=== PATIENT | female | born 1965 | race African-American/Black ===

== ENCOUNTER 2016-09-08 17:18 | Observation (INO) | payer BC ==
[2016-09-08] VITALS (7 sets, daily range): BP systolic 122–151; BP diastolic 81–115; PULSE 71–80; RESP 16–20; TEMP 97.8–98.5; O2SAT 98–100
[~2016-09-08] VITALS: Ht 167.6 cm; Wt 90.5 kg
[~2016-09-08 17:18] MED LIST: 1-ME1LIQ PO; AMLO10TA2 PO; ASPI-110 PO; ASPI81TA82 PO; B-12; CALC-179 OR; HYDR12.56 PO; HYDR12.57 PO; METO50TA PO; MVI; RANI150T PO; VIT E
[2016-09-08] MEDS ORDERED: SODIUM CHLORIDE 0.9% FLUSH 5 ML FLUSH IVF PRN ×2 (17:45→21:00)
[2016-09-08 18:17] LABS: AUTOMATED NEUTROPHIL # 7.5 TH/MM3 (1.8-7.7); BASOPHIL # 0.1 TH/MM3 (0-0.2); BASOPHIL % 0.6 % (0.0-2.0); EOSINOPHIL # 0.2 TH/MM3 (0-0.4); EOSINOPHIL % 1.7 % (0.0-4.0); HEMATOCRIT 37.7 % (35.0-46.0); HEMO FLAGS DIFF FINAL; LYMPH % 17.6 % (9.0-44.0); LYMPHOCYTE # 1.8 TH/MM3 (1.0-4.8); MEAN CELL VOLUME 88.6 FL (80.0-100.0); MEAN CORPUSCULAR HEMOGLOBIN 30.5 PG (27.0-34.0); MEAN CORPUSCULAR HGB CONC 34.5 % (32.0-36.0); MONO % 5.8 % (0.0-8.0); NEUT % 74.3 % (16.0-70.0); PLATELET COUNT 230 TH/MM3 (150-450); RED BLOOD COUNT 4.26 MIL/MM3 (4.00-5.30); RED CELL DISTRIBUTION WIDTH 14.5 % (11.6-17.2); WHITE BLOOD COUNT 10.2 TH/MM3 (4.0-11.0)
--- NOTE | 2016-09-08 18:17 | RADRPT ---
EXAM DATE/TIME: 09/08/2016 17:58 [facility] COMPARISON: No previous studies available for comparison. INDICATIONS : Chest and left shoulder pain. MEDICAL HISTORY : Hypertension. SURGICAL HISTORY : None. ENCOUNTER: Initial ACUITY: 2 weeks PAIN SCORE: 10/10 LOCATION: chest FINDINGS: A single view of the chest demonstrates the lungs to be symmetrically aerated without evidence of mas s, infiltrate or effusion. The cardiomediastinal contours are unremarkable. Osseous structures are intact. CONCLUSION: No acute disease. Kirk Lauren MD on September 08, 2016 at 18:14 Board Certified Radiologist. This report was verified electronically.
[2016-09-08 18:29] LABS: APTT (PATIENT) 36.4 SEC (24.3-30.1); PROTHROMBIN TIME - PATIENT 10.9 SEC (9.8-11.6)
--- NOTE | 2016-09-08 18:30 | PD ---
HPI Chief Complaint: Pain: Acute or Chronic Time Seen by Provider: 18:23 Travel History International Travel<30 days: No Contact w/Intl Traveler<30days: No Traveled to known affect area: No History of Present Illness HPI Patient is a 51-year-old female presenting with left-sided chest pain that radiates into her left shoulder to about the elbow for 2 weeks. Worsening over the last 2 days. She states the pain is achy in nature. It is often mild and frequent only present. It does seem to be worse with movements and uses of the left arm. She denies any exertional component and it is not relieved by rest. She denies any associated shortness of breath, nausea, vomiting, diaphoresis, dizziness, palpitations, cough or fever. She denies pedal edema or pain in her legs. She denies orthopnea and OSBORN. She denies worsening pain with lying flat and relieved by lying forward. She has taken Tylenol for the pain which has not helped. She denies any trauma or injury to the arm but has had intermittent paresthesias in the upper left extremity 2-3 years, none of them present the last 2 weeks during this time. She is a history of hypertension is well-controlled. She denies history of diabetes, hyperlipidemia and CAD. She is a never smoker. She denies alcohol and illicit drug use. Of note in February 2012 Dr. Nicole performed a nuclear stress test was was normal. [facility] Past Medical History Arthritis: No Asthma: No Autoimmune Disease: No Blood Disorders: No Anxiety: No Depression: No Heart Rhythm Problems: No Cancer: No High Cholesterol: No Chemotherapy: No Chest Pain: Yes Congestive Heart Failure: No COPD: No Cerebrovascular Accident: No Diabetes: No Endocrine: No GERD: No Glaucoma: No Genitourinary: No Headaches: No Hepatitis: No Hiatal Hernia: No Hypertension: Yes Kidney Stones: No Musculoskeletal: No Neurologic: No Psychiatric: No Respiratory: No Myocardial Infarction: No Radiation Therapy: No Renal Failure: No Seizures: No Sickle Cell Disease: No Sleep Apnea: No Thyroid Disease: No Ulcer: No ?: Not Past Surgical History Abdominal Surgery: No AICD: No Cardiac Surgery: No Ear Surgery: No Endocrine Surgery: No Eye Surgery: No Genitourinary Surgery: No Gynecologic Surgery: Yes Oral Surgery: No Pacemaker: No Thoracic Surgery: No Social History Alcohol Use: No Tobacco Use: No Substance Use: No Allergies-Medications (Allergen,Severity, Reaction): Coded Allergies: Latex (Verified Allergy, Severe, itching, burning, 09/08/16) Vasotec (Verified Allergy, Severe, angioedema, 09/08/16) SOB, trouble breathing, facial swelling, slurred speech Reported Meds & Prescriptions Reported Meds & Active Scripts Active Reported Metoprolol Tartrate 50 Mg Tab 50 Mg PO BID Hydrochlorothiazide 12.5 Mg Cap 12.5 Mg PO BID Ranitidine (Ranitidine HCl) 150 Mg Tab 150 Mg PO BID Aspirin 81 (Aspirin) 81 Mg Tabdr 81 Mg PO DAILY [Vit E] [Mvi] Calciu3 1 OR [B-12] Review of Systems Except as stated in HPI: all other systems reviewed are Neg Physical Exam Narrative GENERAL: Well-developed and well-nourished adult female in no acute distress. SKIN: Warm and dry. Good turgor without tenting. HEAD: Normocephalic and atraumatic. EYES: PERRL bilaterally, 5mm. EOMI bilaterally. No injection or icterus present. No proptosis. Lids without edema or erythema. ENT: Buccal mucosa pink and moist. Oropharynx free of erythema, tonsillar hypertrophy, masses, swelling, asymmetry and exudates. Uvula midline and airway patent. NECK: Supple, no midline tenderness, crepitus or step-offs or meningeal signs. Trachea midline, no JVD. No cervical or facial lymphadenopathy. CARDIOVASCULAR: Regular rate and rhythm without murmurs, rubs, clicks or gallops. Radial and posterior tibial pulses 2+ bilaterally. No pedal edema. Negative bilateral Homans sign. RESPIRATORY: Clear to auscultation bilaterally with symmetrical rise and fall, no distress or use of accessory muscles. GASTROINTESTINAL: Non-tender, non-distended. Normal bowel sounds all 4 quadrants. No masses or organomegaly present. MUSCULOSKELETAL: Palpation of the anterior chest wall and sternum reveals no tenderness, crepitus or step offs. Full range of motion the left shoulder without any squaring off or tenderness to palpation. No edema or discoloration. No gait disturbances. Patient freely moving all four extremities spontaneously. Extremities without clubbing, cyanosis, or edema. No obvious deformities. NEUROLOGIC: CN II-XII grossly intact. Awake and alert. Strength 5/5 bilateral shoulder flexion, shoulder extension, elbow flexion, elbow extension, wrist flexion and wrist extension. Sensation intact and strength 5/5 over radial, median, and ulnar nerve distributions bilaterally. Bilateral biceps, triceps and brachial radialis DTRs 2+. Negative bilateral Garrett sign. Normal speech. PSYCHIATRIC: Appropriate mood and affect; insight and judgment normal. Data Data Last Documented VS Vital Signs Date Time Temp Pulse Resp B/P Pulse Ox O2 Delivery O2 Flow Rate FiO2 09/08/16 20:30 78 16 130/81 99 Room Air 09/08/16 17:42 98.5 Orders Electrocardiogram (09/08/16 17:40) Basic Metabolic Panel (Bmp) (09/08/16 17:40) Ckmb (Isoenzyme) Profile (09/08/16 17:40) Complete Blood Count With Diff (09/08/16 17:40) Magnesium (Mg) (09/08/16 17:40) Prothrombin Time / Inr (Pt) (09/08/16 17:40) Act Partial Throm Time (Ptt) (09/08/16 17:40) Troponin I (09/08/16 17:40) Chest, Single Ap (09/08/16 17:40) Ecg Monitoring (09/08/16 17:40) Bilateral Bp Monitoring (09/08/16 17:40) Iv Access Insert/Monitor (09/08/16 17:40) Oximetry (09/08/16 17:40) Sodium Chloride 0.9% Flush (Ns Flush) (09/08/16 17:45) CKMB (09/08/16 18:03) CKMB% (09/08/16 18:03) Potassium Chloride (Kcl) (09/08/16 19:15) Admit Order (Ed Use Only) (09/08/16 20:49) Labs Laboratory Tests Test 09/08/16 18:03 White Blood Count 10.2 TH/MM3 Red Blood Count 4.26 MIL/MM3 Hemoglobin 13.0 GM/DL Hematocrit 37.7 % Mean Corpuscular Volume 88.6 FL Mean Corpuscular Hemoglobin 30.5 PG Mean Corpuscular Hemoglobin 34.5 % Concent Red Cell Distribution Width 14.5 % Platelet Count 230 TH/MM3 Mean Platelet Volume 8.8 FL Neutrophils (%) (Auto) 74.3 % Lymphocytes (%) (Auto) 17.6 % Monocytes (%) (Auto) 5.8 % Eosinophils (%) (Auto) 1.7 % Basophils (%) (Auto) 0.6 % Neutrophils # (Auto) 7.5 TH/MM3 Lymphocytes # (Auto) 1.8 TH/MM3 Monocytes # (Auto) 0.6 TH/MM3 Eosinophils # (Auto) 0.2 TH/MM3 Basophils # (Auto) 0.1 TH/MM3 CBC Comment DIFF FINAL Differential Comment Prothrombin Time 10.9 SEC Prothromb Time International 1.0 RATIO Ratio Activated Partial 36.4 SEC Thromboplast Time Sodium Level 138 MEQ/L Potassium Level 3.1 MEQ/L Chloride Level 100 MEQ/L Carbon Dioxide Level 28.6 MEQ/L Anion Gap 9 MEQ/L Blood Urea Nitrogen 13 MG/DL Creatinine 0.72 MG/DL Estimat Glomerular Filtration 104 ML/MIN Rate Random Glucose 88 MG/DL Calcium Level 9.3 MG/DL Magnesium Level 2.0 MG/DL Total Creatine Kinase 158 U/L Creatine Kinase MB 0.6 NG/ML Troponin I LESS THAN 0.02 NG/ML MDM Medical Decision Making Medical Screen Exam Complete: Yes Emergency Medical Condition: Yes Interpretation(s) Laboratory Tests Test 09/08/16 18:03 White Blood Count 10.2 TH/MM3 (4.0-11.0) Red Blood Count 4.26 MIL/MM3 (4.00-5.30) Hemoglobin 13.0 GM/DL (11.6-15.3) Hematocrit 37.7 % (35.0-46.0) Mean Corpuscular Volume 88.6 FL (80.0-100.0) Mean Corpuscular Hemoglobin 30.5 PG (27.0-34.0) Mean Corpuscular Hemoglobin 34.5 % Concent (32.0-36.0) Red Cell Distribution Width 14.5 % (11.6-17.2) Platelet Count 230 TH/MM3 (150-450) Mean Platelet Volume 8.8 FL (7.0-11.0) Neutrophils (%) (Auto) 74.3 % (16.0-70.0) Lymphocytes (%) (Auto) 17.6 % (9.0-44.0) Monocytes (%) (Auto) 5.8 % (0.0-8.0) Eosinophils (%) (Auto) 1.7 % (0.0-4.0) Basophils (%) (Auto) 0.6 % (0.0-2.0) Neutrophils # (Auto) 7.5 TH/MM3 (1.8-7.7) Lymphocytes # (Auto) 1.8 TH/MM3 (1.0-4.8) Monocytes # (Auto) 0.6 TH/MM3 (0-0.9) Eosinophils # (Auto) 0.2 TH/MM3 (0-0.4) Basophils # (Auto) 0.1 TH/MM3 (0-0.2) CBC Comment DIFF FINAL Differential Comment Prothrombin Time 10.9 SEC (9.8-11.6) Prothromb Time International 1.0 RATIO Ratio Activated Partial 36.4 SEC Thromboplast Time (24.3-30.1) Sodium Level 138 MEQ/L (136-145) Potassium Level 3.1 MEQ/L (3.5-5.1) Chloride Level 100 MEQ/L (98-107) Carbon Dioxide Level 28.6 MEQ/L (21.0-32.0) Anion Gap 9 MEQ/L (5-15) Blood Urea Nitrogen 13 MG/DL (7-18) Creatinine 0.72 MG/DL (0.50-1.00) Estimat Glomerular Filtration 104 ML/MIN Rate (>89) Random Glucose 88 MG/DL (74-106) Calcium Level 9.3 MG/DL (8.5-10.1) Magnesium Level 2.0 MG/DL (1.5-2.5) Total Creatine Kinase 158 U/L (26-192) Creatine Kinase MB 0.6 NG/ML (0.5-3.6) Troponin I LESS THAN 0.02 NG/ML (0.02-0.05) Last Impressions Chest X-Ray 09/08/16 6480 Signed Impressions: Service Date/Time: Thursday, September 08, 2016 17:58 - CONCLUSION: No acute disease. Kirk Lauren MD Differential Diagnosis ACS versus costochondritis versus pericarditis versus pneumonia versus shoulder pain versus tendinitis Narrative Course Patient is a 51-year-old female who has had intermittent left-sided chest pain radiating the left shoulder for 2 weeks worsening over the last 2 days. Does seem to be worse with use of the left upper extremity but not exertional and not relieved by rest. She is vague about the pain and has difficulty describing what seems to be aching and rather constant and she denies any associated symptoms. This is not reproducible however. She does have a history of hypertension which is well-controlled and takes daily aspirin. She is a nonsmoker and denies history of diabetes and hyperlipidemia. 2011 Dr. Nicole performed nuclear stress test which was normal. EKG shows sinus rhythm with first-degree AV block with FL interval of 212 ms. Other intervals within normal limits. No ST-T changes. No changes compared to previous EKG. Troponin less than 0.02. CBC shows WBC 10.2 with mild neutrophilia. Potassium 3.1, was replaced orally. Given that this is not clearly musculoskeletal type chest pain patient's history of hypertension recommended stated chest pain center which she accepted.I discussed this patient with Dr. Bauer throughout their care. He has also evaluated this patient, helped formulate, and agrees with the assessment and plan. Diagnosis Primary Impression: Chest pain Qualified Code: R07.9 - Chest pain, unspecified type Admitting Information Admitting Physician Requests: Observation Condition: Stable Irvin Rowell III Sep 08, 2016 18:30
[2016-09-08 18:36] LABS: ANION GAP 9 MEQ/L (5-15); BICARBONATE 28.6 MEQ/L (21.0-32.0); BLOOD UREA NITROGEN 13 MG/DL (7-18); CHLORIDE 100 MEQ/L (98-107); GLOMERULAR FILTRATION RATE 104 ML/MIN (>89); POTASSIUM 3.1 MEQ/L (3.5-5.1); SODIUM (NA) 138 MEQ/L (136-145)
[2016-09-08 18:39] LABS: CREATINE KINASE 158 U/L (26-192)
[2016-09-08 18:51] LABS: CKMB 0.6 NG/ML (0.5-3.6)
[2016-09-08] MEDS ORDERED: POTASSIUM CHLORIDE 20 MEQ CONTROLLED RELEASE TAB PO ONE (19:15)
[2016-09-08] MEDS: SODIUM CHLORIDE 0.9% FLUSH 5 ML FLUSH IVF SCH (21:00)
[2016-09-08] MEDS ORDERED: NITROGLYCERIN 0.4 MG SL 25 TABS/BTL SL PRN (21:00)
[2016-09-08] MEDS ORDERED: ONDANSETRON HCL 4 MG/2 ML VIAL IV PRN (21:00)
[2016-09-08] MEDS ORDERED: MORPHINE SULFATE 4 MG/ML INJ IV PRN (21:00)
[2016-09-08] MEDS ORDERED: TEMAZEPAM 15 MG CAP PO PRN (21:00)
[2016-09-08] MEDS ORDERED: ALPRAZolam 0.25 MG TAB PO PRN (21:00)
[2016-09-08] MEDS ORDERED: ACETAMINOPHEN/HYDROcodone 325 MG/7.5 MG TAB PO PRN (21:00)
[2016-09-08 22:01] LABS: CREATINE KINASE 124 U/L (26-192)
[2016-09-08 22:14] LABS: CKMB 0.6 NG/ML (0.5-3.6)
[2016-09-09] VITALS (12 sets, daily range): BP systolic 108–135; BP diastolic 69–91; PULSE 64–84; RESP 16–18; TEMP 97.6–98.4; O2SAT 98–100
[2016-09-09 01:03] LABS: CREATINE KINASE 117 U/L (26-192)
[2016-09-09 01:16] LABS: CKMB LESS THAN 0.5 NG/ML (0.5-3.6)
[2016-09-09] MEDS: ASPIRIN 325 MG TAB PO SCH (08:03)
[2016-09-09] MEDS: SODIUM CHLORIDE 0.9% FLUSH 5 ML FLUSH IVF SCH ×2 (08:03→20:14)
--- NOTE | 2016-09-09 13:44 | EKG ---
Date Performed: 09/08/2016 Time Performed: 17:51:21 PTAGE: 51 years EKG: Sinus rhythm WITH FIRST DEGREE AV BLOCK ABNORMAL ECG Since PREVIOUS TRACING , no significant change noted PREVIOUS TRACIN02/20/2005 10.40 DOCTOR: Mable Mtz Interpretating Date/Time 09/09/2016 13:44:19
--- NOTE | 2016-09-09 13:46 | EKG ---
Date Performed: 09/08/2016 Time Performed: 21:15:20 PTAGE: 51 years EKG: Sinus rhythm BORDERLINE LEFT AXIS DEVIATION MINIMAL VOLTAGE CRITERIA FOR LVH, CONSIDER NORMAL VARIANT NONSPECIFIC T-WAVE ABNORMALITY Since previous tracing, no significant change noted BORDERLINE ECG PREVIOUS TRACING : 09/08/2016 17.51 DOCTOR: Mable Mtz Interpretating Date/Time 09/09/2016 13:44:53
--- NOTE | 2016-09-09 13:46 | EKG ---
Date Performed: 09/08/2016 Time Performed: 23:58:19 PTAGE: 51 years EKG: Sinus rhythm BORDERLINE LEFT AXIS DEVIATION NONSPECIFIC T-WAVE ABNORMALITY BORDERLINE ECG Since PREVIOUS TRACING , no significant change noted PREVIOUS TRACIN09/08/2016 21.15 DOCTOR: Mable Mtz Interpretating Date/Time 09/09/2016 13:45:12
--- NOTE | 2016-09-09 17:57 | TR ---
Date Performed: 09/09/2016 Time Performed: 16:41:01 DOCTOR: Levi Russo DRUG LIST: CLINICAL HISTORY: REASON FOR TEST: REASON FOR ENDING: OBSERVATION: CONCLUSION: Pt exercised using Miguel protocol for Total Exercise Time=3:15 Maximum YE=841 % Max HR Achieved=98.0% Maximum UE=040/80. Exercise ended secondary to rate/EKG. Normal BP response seconda ry to level of exercise. No chest pain, feeling of palpitations, or any symptoms. Poor exercise tolee ct. Patient developed a rate related LT. BBB seconds after standing to walk to treadmill developed sinus tachycardia with ST-T depression inf/lateral leads and LBBB asymptomatic. Patient converts kourtney k to SR during recovery as her rate decreases below [address] changes initially improve somewhat wit h resolution of Left bundle branch block. COMMENTS: CONCLUSION: Developed sinus tachycardia with rate dependent left bundle branch block. Will obtain Lexiscan nuclear stress test.
[2016-09-09] MEDS: FAMOTIDINE 20 MG TAB PO SCH (20:13)
[2016-09-09] MEDS: METOPROLOL TARTRATE 50 MG TAB PO SCH (20:13)
[2016-09-09] MEDS ORDERED: RANITIDINE HCL 150 MG TAB PO SCH (21:00)
[2016-09-10] VITALS (7 sets, daily range): BP systolic 115–137; BP diastolic 66–88; PULSE 66–84; RESP 16–18; TEMP 97–98.7; O2SAT 97–99
[2016-09-10] MEDS: METOPROLOL TARTRATE 50 MG TAB PO SCH (08:16)
[2016-09-10] MEDS: FAMOTIDINE 20 MG TAB PO SCH (08:16)
[2016-09-10] MEDS: ASPIRIN 325 MG TAB PO SCH (08:16)
[2016-09-10] MEDS: SODIUM CHLORIDE 0.9% FLUSH 5 ML FLUSH IVF SCH (08:16)
[2016-09-10] MEDS ORDERED: REGADENOSON INJ 0.4 MG/5 ML SYR ONE (11:17)
--- NOTE | 2016-09-10 12:14 | TR ---
Date Performed: 09/10/2016 Time Performed: 11:27:42 DOCTOR: Levi Russo DRUG LIST: CLINICAL HISTORY: ANGINA REASON FOR TEST: Angina REASON FOR ENDING: OBSERVATION: CONCLUSION: Lexiscan stress test was performed under standard four minute protocol. Radionuclide was injected one minuyte prior to ending the test. Developerd chest pressure. No electrocardiographi c abnormalities were present to suggest ischemia. Recovery was quick and uneventful with resolution o f chest pressure. Nuclear imaging and interpretation are pending. COMMENTS:
[2016-09-10] MEDS ORDERED: POTASSIUM CHLORIDE 10 MEQ CONTROLLED RELEASE TAB PO ONE (12:30)
--- NOTE | 2016-09-10 12:42 | RADRPT ---
EXAM DATE/TIME: 09/10/2016 10:55 [facility] COMPARISON: No previous studies available for comparison. INDICATIONS : Left sided chest pain for two weeks. Angina. DOSE: 25.5 mCi Tc99m Myoview at stress. 8.7 mCi Tc99m Myoview at rest. 0.4 mg Lexiscan STRESS SYMPTOMS: Chest pressure. EJECTION FRACTION: 52% MEDICAL HISTORY : Hypertension. SURGICAL HISTORY : Hysterectomy. ENCOUNTER: Initial ACUITY: 2 weeks PAIN SCALE: 6/10 LOCATION: Left chest TECHNIQUE: The patient underwent pharmacologic stress with infusion of prescribed dose. Continuous ECG tracing was monitored during stress. Gated SPECT imaging was performed after stress and conventional SPECT i maging was performed at rest. The examination was performed on a SPECT/CT scanner, both attenuation and non-corrected datasets were reviewed. FINDINGS: DISTRIBUTION: The maximum perfused segment at stress is in the septal wall. PERFUSION STUDY: There is a small fixed apical defect. GATED STUDY: There is intact wall motion and thickening without hypokinetic or dyskinetic segments. CONCLUSION: 1. No definite reversible perfusion defects are identified to suggest stress induced myocardial ische [place]. RISK CATEGORY: Low (<1% Annual Mortality Rate) Phi Jeffries MD on September 10, 2016 at 12:38 Board Certified Radiologist. This report was verified electronically.
--- NOTE | 2016-09-10 12:59 | HHI.DCPOC ---
Discharge Care Plan Diagnosis: (1) Musculoskeletal chest pain Goals to Promote Your Health * To prevent worsening of your condition and complications * To maintain your health at the optimal level Directions to Meet Your Goals Take your medications as prescribed Follow your dietary instruction Follow activity as directed Keep your appointments as scheduled Take your immunizations and boosters as scheduled If your symptoms worsen call your PCP, if no PCP go to Urgent Care Center or Emergency Room Smoking is Dangerous to Your Health. Avoid second hand smoke Call the 24-hour hour crisis hotline for domestic abuse at Harika Davis Sep 10, 2016 12:59
[2016-09-10] MEDS ORDERED: AMLO10TA2 PO (13:02)
--- NOTE | 2016-09-11 08:34 | MH ---
cc: ROYA RUSSO,DOE Aguilar MD DATE OF ADMISSION: 09/08/2016 HISTORY OF PRESENT ILLNESS This is a very pleasant 51-year-old -[place] female who initially saw her primary care physician, Dr. Ackerman, in the [facility] yesterday afternoon for complaints of left shoulder and upper left chest discomfort. She was sent by Dr. Ackerman to the emergency room for evaluation with possible observation in the chest pain center if initially ruled out. She was subsequently admitted to the resident service by the ER and observed overnight with rule out protocol and then transferred to the chest pain center service the next afternoon. Her chief complaint is left shoulder discomfort that she feels is just into the left anterior chest initially with onset approximately two weeks ago with radiation initially down to her left elbow and then two days ago radiating down to her left hand. For the last two days, the chest discomfort and left shoulder and arm discomfort became concerning and worsening prompting her to call her primary care physician afternoon after it worsened and saw her primary care physician yesterday afternoon and was sent here. She cannot relate to any precipitating factors. The pain from the time of arrival in the emergency department where she rates it as a 10/10 has decreased this afternoon on evaluation to a 4-5/10 she states after taking one Lortab around midnight. She has had numbness and tingling of the left arm but particularly she notes that in the left hand all fingers which concerned her as well. That has also resolved during the night. She describes the discomfort basically has an aching type pain. She does not notice any radiation to the jaw, neck or back. She cannot particularly note that it is worsened with any type of exertion movement or food, although she does admit at one point if she raised her left arm upward, she felt a little bit of discomfort in her left shoulder. She has experienced no associated nausea, vomiting, dyspnea. She states she normally has a little bit of diaphoresis and she noticed a bit more over the last day or two then her usual. She denies any cough, fevers, chills. She does have some chronic numbness and tingling in her fingers that she relates to her carpal tunnel syndrome which is been present for the last two or three years. She feels it in both hands, but predominantly in her left. She does wear a brace for this periodically and states that that helps the symptoms significantly to the point they resolve. She felt that the numbness and tingling in the fingers and hand associated with this pain was a bit different from what she feels with her carpal tunnel syndrome. She is right-hand dominant. She denies any traumas, injuries or falls to precipitate the left shoulder or chest discomfort. PAST MEDICAL HISTORY: 1. Hypertension, which she reports is well-controlled. 2. Eczema. 3. Carpal tunnel syndrome bilaterally but she states primarily in her left hand/wrist. 4. Mild mitral regurgitation. 5. Total abdominal hysterectomy for fibroids in 2002. 6. She denies any history of diabetes or dyslipidemia. 7. She has had a cardiac catheterization in the past unsure of the exact date but believes it to be four or five years ago. She denies any angioplasty or stents. She is unclear whether or not she had any heart disease. She does mention that she was placed on Norvasc 10 milligrams after the heart catheterization. When questioned further, she believes it could have been from coronary artery spasms. FAMILY HISTORY: Positive for a maternal grandmother with triple-vessel CABG; she is unsure of age at time of surgery. Her mother has hypertension but no heart disease. There is some questionable heart history in her father in his late 60s to early 70s, but she is unsure specifically if it was coronary artery disease or another type of heart problem. SOCIAL HISTORY: She is . She has two grown children. 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 She states she is fairly active in her job and she does do some walking for exercise. She is a lifetime nonsmoker and states alcohol is very rare socially, sometimes on the weekends one or two drinks. She denies any drug use. PAST CARDIAC TESTING: There are there are notes reviewed from Dr. Nicole from January and February of 2012 in the electronic medical record demonstrating reports of a negative Lexiscan for ischemia or fixed defects, a 2-D echocardiogram with ejection fraction of 50% and mild mitral regurgitation. No further records are located with details of her heart catheterization. She has not seen Dr. Nicole she states in an least two years but she believes likely possibly four. MEDICATIONS: Her medications were listed and reviewed as: 1. Metoprolol tartrate 50 milligrams p.o. twice a day. 2. Hydrochlorothiazide 12.5 milligrams p.o. twice a day. 3. Ranitidine 150 milligrams p.o. twice a day. 4. Aspirin 81 milligrams p.o. twice a day. 5. Not listed in her records from the [facility] were A. Norvasc 10 milligrams p.o. daily which she states she does take. B. She also periodically takes a multivitamin, vitamin E, calcium with vitamin D and B12 supplements [id number]. ALLERGIES: 1. LATEX. 2. VASOTEC FOR WHICH SHE HAD ANGIOEDEMA. REVIEW OF SYSTEMS: Positive for what is discussed above in the history of present illness. PHYSICAL EXAMINATION: VITAL SIGNS: The vital signs are stable. Temperature is 97.8, heart rate 84, respiratory rate 18, blood pressure 124/75, 02 saturation is 100% on room air. GENERAL: This is a very pleasant 51-year-old -[place] female resting quietly in bed. Her and another family member are at the bedside, all very pleasant. Currently she states the discomfort at 4/10 as described above and states generally she feels well compared to the day prior. She denies any numbness in her hand currently. HEAD, EYES, EARS, NOSE, THROAT: Head is normocephalic and atraumatic. Eyes - sclerae are clear, nonicteric, extraocular muscles intact. NECK: The neck is supple. Trachea is midline. No jugular venous distention or carotid bruits. CARDIOVASCULAR: S1, S1 and regular rate and rhythm. No S3, S4, rub or gallop. She has a grade 1/6 systolic murmur. RESPIRATORY: The lungs are clear to auscultation bilaterally. Good air movement. ABDOMEN: Abdomen is softly obese and nontender. EXTREMITIES: There is no leg edema. Pulses are 2+. She moves all extremities well. Examination of the left shoulder, anterior, posterior and left upper back demonstrate no specific palpable tenderness. She has no left anterior chest wall tenderness. She has good range of motion of the left arm. She had only slight discomfort in the left anterior shoulder with abduction of her arm overhead and lateral to her head. Strength 5/5 against resistance and no reproduction of worsening pain with muscle testing. She has 2+ pulses in her left arm. There is no acute vascular change. She does not note any feeling of decreased sensation in her left hand currently. SKIN: Cool and dry. MUSCULOSKELETAL: PSYCHIATRIC: Very pleasant and friendly. Normal mood, affect and judgment. LABORATORY DATA: CBC is essentially unremarkable. Coag profile unremarkable. Basic chemistry: Potassium 3.1. Three sets of negative troponins. IMAGING STUDIES: Chest film showing no acute disease. EKGS: EKGs done x3 all showing sinus rhythm, first-degree AV block. One EKG with some nonspecific T-wave abnormalities and a borderline left axis. An exercise treadmill test with conclusion: Developed sinus tachycardia with a rate-dependent left bundle branch block and recommendations for a Lexiscan nuclear stress test. The patient was asymptomatic. ASSESSMENT: Left shoulder, arm and chest pain. The patient was ruled out with three sets of cardiac enzymes and EKGs. She was observed overnight in the [facility]. Initially admitted to the residents however transferred to the chest pain center care late afternoon and was seen and evaluated by Dr. Russo through the chest pain center. The patient underwent a Miguel protocol exercise treadmill test, and as above, demonstrated sinus tachycardia and rate induced/related left bundle branch block. She was asymptomatic during testing. PLAN: 1. The plan is for continued observation overnight in the chest pain center. 2. She will go undergo a Lexiscan nuclear stress test tomorrow for further evaluation. 3. Will resume her medications as prior including beta irina and with the addition of amlodipine 10 milligrams p.o. daily as she did indicate she takes at home normally. 4. We will hold her hydrochlorothiazide secondary to hypokalemia. 5. A recheck potassium level in the a.m.. 6. Continue telemetry monitoring. Further recommendations tomorrow based upon results of testing and per Dr. Russo's recommendations. She has seen Dr. Nicole in the distant past. Contact with him as needed per tomorrow's recommendations. Dictated by JOSUE Rebolledo. Roya Russo MD [facility]/Roger /6:34 PM /8:33 AM
[2016-09-20] MEDS ORDERED: HYDR12.57 PO (15:28)
[2016-09-21] MEDS ORDERED: FLUT50SP EACH NARE (09:17)
[2016-10-23] MEDS ORDERED: FLUT50SP EACH NARE (15:25)
[2016-11-16] MEDS ORDERED: RANI150T PO (08:13)
[2016-11-16] MEDS ORDERED: METO50TA PO (08:13)
[2016-11-16] MEDS ORDERED: ASPI-110 PO (08:13)
[2016-11-16] MEDS ORDERED: HYDR12.57 PO (08:13)
[2016-11-16] MEDS ORDERED: AMLO10TA2 PO (08:13)
[2017-01-19] MEDS ORDERED: METO50TA PO (09:58)
== END 2016-09-10 14:07 | disposition home or self-care (01) ==
LOC: NEPE 17:18 → NEDH 20:51 → NEPHCDU 21:55
PROVIDERS: ADMIT Family Medicine; ATTEND Family Medicine
DX: R07.89 Other chest pain (principal); I10 Essential (primary) hypertension; E87.6 Hypokalemia; I34.0 Nonrheumatic mitral (valve) insufficiency; G56.00 Carpal tunnel syndrome, unspecified upper limb; Z90.710 Acquired absence of both cervix and uterus; Z79.82 Long term (current) use of aspirin
CPT/HCPCS: 71010; 78452; 80048; 82550; 82552; 83735; 84132; 84484; 85025; 85610; 85730; 93005; 93017; 99285; A9502; G0378; J2785